=== PATIENT | male | born 1940 | race Caucasian/White ===

== ENCOUNTER → 2018-03-27 | Outpatient (CLI) | payer MEDICARE, OTHER ==
[2014-09-25 16:15] VITALS: BMI 34.2
[~2018-03-27] MED LIST: ALL100 PO; ALLO100T70 PO; ASPI-1441 PO; BETH25TA43 PO; CIPR-344 PO; COL0.6 PO; CYC10 PO; DOX2 PO; DOXA1TAB37 PO; FAMO20TA28 PO; FIN5 PO; HCTZ25 PO; HYDR-385 PO; IBU800 PO; IBUP-1671 PO; LEV125 PO; LIS10 PO; LOSA-57 PO; OXYC-763 PO; PER PO; SILD100T59 PO; ZOLP-350 PO
--- NOTE | 2018-03-27 13:19 | RADIOLOGY IMAGING REPORT ---
FACILITY: [facility] [place] PATIENT NAME: Donte Patel : 1940 MR: [id number] V: [id number] EXAM DATE: ORDERING PHYSICIAN: BRETT TORRES TECHNOLOGIST: Location: [facility] Patient: Donte Patel : 1940 Visit/Account:[id number] Date of Sevice: 03/27/2018 US SINGLE ORGAN EXAMINATION: Abdominal ultrasound limited. Pre and post void lateral measurements. Additional Pertinent history: Right testicular pain COMPARISON STUDIES: none FINDINGS: The prevoid bladder volume was calculated at 112 mL. The post void volume was 41 mL. Bilateral uret eral jets identified. No bladder mass lesion or obvious acute bladder pathology evident on this limi shelton exam. IMPRESSION: 1. Limited ultrasound for bladder measurements pre and post void as described. Report Dictated By: Chris Anthony MD at 03/27/2018 1:12 PM Report E-Signed By: Chris Anthony MD at 03/27/2018 1:14 PM WSN:[email or web address]
--- NOTE | 2018-03-27 14:21 | RADIOLOGY IMAGING REPORT ---
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 Th ere are two cysts seen in the anterior aspect of the right testicle one measuring 5 mm in diameter on e measuring 6 mm in diameter There is a 1.4 x 0.6 x 1.3 cm cyst along the posterior aspect the left testicle Symmetric and unrema rkable blood flow documented by color and Duplex Doppler ultrasound. Epididymides: The head epididymis on the right measures 0.8 x 1.3 x 1 cm. The head epididymis on the left measures 1.7 x 0.9 x 1.5 cm and appears hypervascular Hydrocele: None. Varicocele: None. IMPRESSION: There are cysts identified in both testes Hepatomegaly epididymides appear prominent bilaterally. The head epididymis on the left appears hype rvascular Report Dictated By: Chelsea Carrion MD at 03/27/2018 2:12 PM Report E-Signed By: Chelsea Carrion MD at 03/27/2018 2:18 PM WSN:[email or web address]
== END ==
LOC: US 01:26
DX: N50.3 Cyst of epididymis (principal); N44.2 Benign cyst of testis
CPT/HCPCS: 76705; 76870

== ENCOUNTER → 2018-10-23 | Outpatient (CLI) | payer MEDICARE, OTHER ==
[2014-09-25 16:15] VITALS: BMI 34.2
== END ==
LOC: LAB 09:13
DX: E29.1 Testicular hypofunction (principal)
CPT/HCPCS: 36415; 84270; 84403

== ENCOUNTER → 2018-11-09 | Outpatient (CLI) | payer MEDICARE, OTHER ==
[2014-09-25 16:15] VITALS: BMI 34.2
[2018-11-09 15:59] LABS: PLATELET COUNT, AUTOMATED 204 K/uL (150-450)
== END ==
LOC: LAB 15:29
PROVIDERS: ATTEND Internal Medicine Cardiovascular Disease
DX: R00.1 Bradycardia, unspecified (principal)
CPT/HCPCS: 36415; 82040; 82247; 82310; 82374; 82435; 82565; 82947; 84075; 84132; 84155; 84295; 84443; 84450; 84460; 84520; 85025

== ENCOUNTER → 2018-11-23 | Outpatient (CLI) | payer MEDICARE, OTHER ==
[2014-09-25 16:15] VITALS: BMI 34.2
== END ==
LOC: LAB 09:12
DX: E29.1 Testicular hypofunction (principal)
CPT/HCPCS: 36415; 84270; 84403